=== PATIENT | female | born 1955 | race Caucasian/White ===

== ENCOUNTER → 2021-02-28 07:27 | Outpatient (CLI) | payer BC, SELFPAY ==
--- NOTE | 2021-02-28 08:00 | BRBX_PTH ---
PATIENT: CARO JOHNSON LOC: [facility] U#:[id number] AGE/SX: 70/F ROOM: RE02/28/[address]: Dr. Dilia Parker MD : 1955 BED: DIS: SPEC #: [id number] RECD: 02/28/21 08:40 STATUS: JACKIE ANDREAS #: [id number] LULI: 02/28/21 08:[address]: Dilia Parker DEPT: SURGICAL PATHOLOGY RECD BY: Jalyn Harris ENTERED: 02/28/21 09:47 SP TYPE: BREAST BX OTHR DR: Dr. 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 Mild duct ectasia. No evidence of malignancy. AM:dax 03/01/2021 MICROSCOPIC DESCRIPTION Slides are reviewed. GROSS DESCRIPTION Received in fixative is one container labeled with the patient name and designated left breast. The specimen consists of multiple elongated fragments of colindres-yellow fibroadipose tissue that in aggregate measure 5 x 3 x 0.3 cm. The entire specimen is submitted in two cassettes. / SJ:dax 02/28/21 TC:5 CPT: 12490
--- NOTE | 2021-02-28 08:21 | PCM.OPRPT ---
Report of Operation Date of Procedure: 02/28/21 Pre-Operative Diagnosis: abnormal calcifications on left breast mammograms Post-Operative Diagnosis: same Surgery/Procedure Performed:: left breast stereotactic biopsy Description of Surgical Findings:: probably degenerating fibroadenoma Surgeon: Dilia Parker Type of Anesthesia: Local (1% xylocaine) Specimen's removed: left breast tissue Estimated Blood Loss (mL): minimal Description of Procedure: After informed consent was given, the patient was brought into the Breast Biopsy suite. Appropriate time out protocol was followed. The patient was placed in the prone position on the stereotactic biopsy table. The patient?s left breast was then placed in the opening at the head of the biopsy table. A live truck operator compression mammogram was then obtained in the CC view. The suspicious radiological lesion was thus identified. Stereo pictures of the lesion were then taken for XYZ coordinates. The Mammotome biopsy stylus was then positioned where it would be entering into the patient?s breast. The skin at this site was then cleansed with a surgical skin preparation. The skin and subcutaneous tissues at this site were then infiltrated with 1% xylocaine. A small skin incision was made with an 11 blade scalpel. The biopsy stylus was then positioned into the patient?s breast at the proper coordinates of depth. Using the Mammotome vacuum-assist device, several core samples of breast tissue were obtained. A specimen mammogram was the obtained. It revealed that the abnormal calcifications were within the specimen. I reviewed this personally and concluded that the tissue sampling was adequate. A hemostatic marker clip was then placed into the biopsy cavity and a live truck operator film revealed that it was properly deployed. It was a bowtie marker clip. The patient was then placed in the supine position and pressure was applied to the breast until no active bleeding was noted. Steristrips were applied to reapproximate the skin. A unilateral mammogram in the CC and MLO view were then taken which revealed that the marker clip was in the same area as the previous suspicious lesion. The patient tolerated the procedure well and was discharged from the Breast Biopsy suite in good condition. Complications none noted
== END ==
LOC: BIRAD 07:27
PROVIDERS: PCP Family Medicine; Referring Provider Surgery; Visit Provider Surgery
DX: N60.42 Mammary duct ectasia of left breast (principal)
CPT/HCPCS: 19081; 88305; J7050; A4648

== ENCOUNTER 2023-07-13 23:47 | Emergency (ER) | payer BC, SELFPAY ==
[2023-07-13 23:48] VITALS: BP 169/116; PULSE 100; RESP 16; TEMP 36.8; O2SAT 98; BMI 31.1
--- NOTE | 2023-07-14 00:01 | EDS_ITS ---
HPI History of Present Illness Chief Complaint: Laceration Detail of Chief Complaint: Facial laceration Informant: patient Onset/Context/Timing Onset: Today Narrative Narrative: Patient presents secondary to left facial laceration. Patient states she fell out of bed and hit her left cheek on a bedside table. She has a laceration noted to her cheek. She denies dental pain or any intraoral lacerations. She denies headache or neck pain. She denies any injury from the fall. She is able to ambulate into the ER without difficulty. She does report her last tetanus update was within the past 5 years. [facility] Medical History (Updated 07/14/23 @ 00:[address] Selin Parks MD) High cholesterol Hypertension Home Medications atorvastatin 80 mg tablet 80 mg PO .once a day 07/13/23 [History Last Taken Unknown] hydrochlorothiazide 25 mg tablet 25 mg PO .once a day 07/13/23 [History Last Taken Unknown] losartan 100 mg tablet 100 mg PO .once a day 07/13/23 [History Last Taken Unknown] Allergy/AdvReac Type Severity Reaction Status Date / Time Penicillins Allergy Other Verified 07/13/23 23:48 Social History Smoking Status: Former smoker ROS ROS ED Constitutional Constitutional ED: Denies chills or fever(s) Eyes Eyes: Denies change in vision or discharge from eye(s) ENT ENT ED: Denies discharge from eye(s), rhinorrhea or sore throat Cardiovascular Cardiovascular: Denies chest pain Respiratory/Chest Respiratory/Chest: Denies cough or dyspnea Gastrointestinal Gastrointestinal: Denies abdominal pain, nausea or vomiting Musculoskeletal Musculoskeletal: Denies back pain, extremity pain or neck pain Integumentary Reports other Details: Facial laceration ; Denies Abrasions or rash Neurologic Neurologic: Denies headache(s) or weakness Psychiatric Psychiatric: Denies anxiety or depression Allergic/Immunologic Allergic/Immunologic ED: Denies lip swelling or urticaria EXAM Physical Exam Const Vital Signs: 07/13/23 23:48 Temperature 98.3 F Temperature Source Temporal Pulse Rate 100 Respiratory Rate 16 Blood Pressure 169/116 H Blood Pressure Mean 133 Pulse Ox 98 Positive well nourished and well developed General Appearance ED: well developed HEENT HEENT Narrative: 3 cm linear laceration over the left maxilla. Bleeding controlled at this time. Eyes EOMs intact bilaterally Chest Wall inspection of chest normal and palpation of chest normal Resp normal respiratory effort and clear to auscultation bilaterally Cardio regular rhythm Rate: regular rate GI non-tender Palpation: soft Extremity normal to inspection and full ROM Neuro oriented x3, moves all extremities and no sensory deficits noted Motor Exam: strength 5/5 throughout Skin Skin Narrative: Facial laceration as noted above. PROC Procedures Lacerations Left facial laceration: Length: 1.18 in Depth: Sub Q Shape: Linear Prep: Shure-Clens Laceration repair: Irrigated, Lidocaine, Local and Skin sutures Number of Sutures/[place]: 5 Suture Information: Ethilon, Simple and 6-0 MDM MDM MDM Narrative Medical decision making narrative: Left cheek laceration was anesthetized with 3.5 cc 1% lidocaine. Wound was cleansed and irrigated. 5 simple interrupted sutures with 6-0 nylon are placed with good approximation. Antibiotic ointment applied over the wound. Patient encouraged to have her stitches removed in 5 days. Wound care discussed and return instructions given. Discharge Plan Triage Chief Complaint: Laceration ED Provider: Selin Parks Dx/Rx/DC Orders Clinical Impression: Laceration of face Instructions: ED Laceration: All Closures Prescriptions: No Action atorvastatin 80 mg tablet 80 mg PO .once a day hydrochlorothiazide 25 mg tablet 25 mg PO .once a day losartan 100 mg tablet 100 mg PO .once a day Primary Care Provider: Sander Barfield Referrals: Sander Barfield MD [Primary Care Provider] - 5 Days for suture removal Disposition Disposition: Home, Self Care Discharge Date/Time: 07/14/23 01:00
[2023-07-14] MEDS: Lidocaine 1% (20 ml mdv) 20 ML Vial INFILT (00:46)
== END 2023-07-14 01:00 | disposition home or self-care (01) ==
PROVIDERS: Emergency Provider Emergency Medicine; PCP Family Medicine; Visit Provider Emergency Medicine
DX: S01.81XA Laceration without foreign body of other part of head, initial encounter (principal); E78.00 Pure hypercholesterolemia, unspecified; Z87.891 Personal history of nicotine dependence; I10 Essential (primary) hypertension; W06.XXXA Fall from bed, initial encounter; Y93.89 Activity, other specified; Z79.899 Other long term (current) drug therapy
CPT/HCPCS: 12013; 99283

== ENCOUNTER → 2025-06-06 | Outpatient (CLI) | payer MEDICARE, SELFPAY ==
--- NOTE | 2025-06-06 09:30 | PET_ITS ---
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 TECHNIQUE: Procedure Code: PETPTCTINIT Modality: PT Procedure: PET/CT TUMOR BASE -THIGH INIT Following the intravenous administration of radionucleotide, image acquisition on a dedicated PET/CT unit was performed at one hour post injection. A preliminary CT study encompassing the Skull base, neck, chest, abdomen, pelvis, and proximal thighs was performed for purposes of attenuation correction and anatomic localization. The proximal thighs were also included. The patient's blood glucose level was 128 mg/dL (allowable range: 50-180 mg/dL). RADIOPHARMACEUTICAL: 14.0 mCi 18F-FDG (Fluorodeoxyglucose F18) IV was injected into he patient. RADIATION DOSE SUMMARY: Effective Dose: Approximately 7 mSv for a standard whole-body PET scan Organ Doses: Varies by organ, with higher doses typically to the bladder, liver, and brain COMPARISON: COMPARISON FROM CT, PET OR OTHER PERTINENT EXAMS: None provided. FINDINGS: Physiologic uptake: There may be expected metabolic uptake within the brain, tongue and floor of the mouth and larynx/vocal cords, heart, delores (many normal individuals have hilar uptake in less than 3 nodes with mildly avid hilar nodes less than 2.7 SUV), liver and spleen, system, and GI tract and symmetric muscle uptake. FDG AVID AND NON-AVID LESIONS. Reported avid SUV values (g/mL*) are maximum SUV. NECK: There are no significant neck abnormalities. CHEST: Chest wall- There are no significant chest wall abnormalities. Axilla- There are no significant axillary abnormalities. Lung parenchyma- Numerous small bilateral pulmonary hypermetabolic foci are seen, consistent with extensive bilateral pulmonary metastatic disease. Mediastinum- There are no significant hilar or mediastinal adenopathy. Pleura- There are no significant pleural abnormalities. ABDOMEN: Prominent arterial calcification. No evidence of abdominal aortic aneurysm. Stomach- No significant abnormalities. Liver- No significant abnormalities. Spleen- No significant abnormalities. Pancrease- No significant abnormalities. Kidneys- No significant abnormalities. Bowel- Normal bowel activity. Spine- No significant abnormalities. PELVIS: Bowel- Normal physiologic bowel activity is identified. Masses- A vulval mass is seen, with SUV max 17.8. Extending posterior to this area, is seen very extensive involvement of the region of the vagina. This likely represents an area malignant involvement. SUV max is approximately 26.0. Bilateral deep pelvic lymph nodes, likely of the internal iliac chains, show hypermetabolic activity with SUV max on the right 16.7, And SUV max of the left of 16.9. In the subcutaneous tissues of the left anterior pelvis are seen two hypermetabolic masses, the more medial with SUV max of 13.6, And the more lateral with SUV max of 17.4. Also, multiple hypermetabolic bilateral inguinal lymph nodes are seen, left worse than right. SUV max on the right 57.5, And SUV max on the left of 15.0. Bones- Degenerative changes are seen throughout the spine, as well as thoracic DISH. Degenerative changes are most prominent the cervical and lumbar portions. With the use of bone window settings, there are no osteolytic or osteoblastic lesions. There are no FDG avid lesions within the visualized portion of the axial skeleton. PET/PET/CT Tumor Base -Thigh Init IMPRESSION: FDG avid- 1. Hypermetabolic vulvar mass, as well as multiple bilateral pelvic nodules and lymph nodes showing marked hypermetabolic activity, consistent with metastatic disease. 2. Extensive bilateral pulmonary metastatic disease. 3. Marked large area of activity in the region of the vagina, likely representi ng a large neoplastic focus. Other: Prominent arterial calcification; no evidence of abdominal aortic aneurysm. Please note the low-dose CT scan was performed to facilitate PET image reconstr uction and anatomic localization and does not replace a diagnostic CT. Any diagnostic CT requested and performed at the time of the PET will be reported separately. Reading Location: [id number]
== END | disposition home or self-care (01) ==
LOC: ONC 08:35
PROVIDERS: PCP Family Medicine; Referring Provider Obstetrics & Gynecology Gynecologic Oncology; Visit Provider Obstetrics & Gynecology Gynecologic Oncology
DX: C51.8 Malignant neoplasm of overlapping sites of vulva (principal)
CPT/HCPCS: 78815; A9552

== ENCOUNTER → 2025-08-01 | Outpatient (CLI) | payer MEDICARE, SELFPAY ==
--- NOTE | 2025-08-01 11:00 | PET_ITS ---
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 A preliminary CT study encompassing the Skull base, neck, chest, abdomen, pelvis, and proximal thighs was performed for purposes of attenuation correction and anatomic localization. The proximal thighs were also included. The patient's blood glucose level was 112 mg/dL (allowable range: 50-180 mg/dL). RADIOPHARMACEUTICAL: 14.493 mCi 18F-FDG (Fluorodeoxyglucose F18) IV was injected into he patient. RADIATION DOSE SUMMARY: Effective Dose: Approximately 7 mSv for a standard whole-body PET scan Organ Doses: Varies by organ, with higher doses typically to the bladder, liver, and brain COMPARISON: COMPARISON FROM CT, PET OR OTHER PERTINENT EXAMS: PET-CT 06/06/2025. FINDINGS: Physiologic uptake: There may be expected metabolic uptake within the brain, tongue and floor of the mouth and larynx/vocal cords, heart, delores (many normal individuals have hilar uptake in less than 3 nodes with mildly avid hilar nodes less than 2.7 SUV), liver and spleen, system, and GI tract and symmetric muscle uptake. FDG AVID AND NON-AVID LESIONS. Reported avid SUV values (g/mL*) are maximum SUV. NECK: There are no significant neck abnormalities. CHEST: Chest wall- There are no significant chest wall abnormalities. Axilla- There are no significant axillary abnormalities. Lung parenchyma- Marked interval improvement of bilateral pulmonary metastatic disease, now without significant hypermetabolic activity seen in the lung parenchyma. Mediastinum- Right mediastinal hypermetabolic activity is seen, concerning for possible metastatic disease. SUV max is 7.5. In the region of the distal esophagus, increased uptake is seen, concerning for possible esophagitis. Pleura- There are no significant pleural abnormalities. ABDOMEN: Moderate aortic calcification; no evidence of abdominal aortic aneurysm. Stomach- No significant abnormalities. Liver- No significant abnormalities. Spleen- No significant abnormalities. Pancrease- No significant abnormalities. Kidneys- No significant abnormalities. Bowel- Normal bowel activity. Spine- No significant abnormalities. PELVIS: Numerous sites of hypermetabolic activity are again seen within the pelvis, vulva, left anterior subcutaneous tissues, with significant interval improvement seen since the prior study of 06/06/2025, however. SUV max of the vulva is 8.4. SUV max in the right inguinal lymph nodes is 7.9. SUV max at the left inguinal lymph nodes is 6.1. SUV max within the pelvis is difficult to accurately measure due to adjacent urinary activity, but is clearly improved since the prior study. Bowel- Normal physiologic bowel activity is identified. Bones- Degenerative changes of the spine are most prominent at the lumbar and cervical regions. With the use of bone window settings, there are no osteolytic or osteoblastic lesions. There are no FDG avid lesions within the visualized portion of the axial skeleton. PET/PET/CT Tumor Base -Thigh Subs IMPRESSION: FDG avid- 1. Marked interval improvement in previous bilateral pulmonary metastatic disea se. 2. Extensive areas of hypermetabolic activity in the region of the vulva, left anterior pelvis, bilateral inguinal regions, and within the pelvis, but with significant interval improvement seen since the mos t recent comparison examination. 3. In the region of the distal esophagus, increased uptake is seen, concerning for possible esophagitis. Other: 1. Moderate aortic calcification; no evidence of abdominal aortic aneurysm. 2. Degenerative changes of the spine, most prominent at the lumbar and cervical regions. Please note the low-dose CT scan was performed to facilitate PET image reconstr uction and anatomic localization and does not replace a diagnostic CT. Any diagnostic CT requested and performed at the time of the PET will be reported separately. Reading Location: [place] [id number]
== END | disposition home or self-care (01) ==
LOC: ONC 10:21
PROVIDERS: PCP Family Medicine; Referring Provider Obstetrics & Gynecology Gynecologic Oncology; Visit Provider Obstetrics & Gynecology Gynecologic Oncology
DX: C51.8 Malignant neoplasm of overlapping sites of vulva (principal)
CPT/HCPCS: 78815; A9552